=== PATIENT | female | born 1970 | race Caucasian/White ===

== ENCOUNTER 2017-03-08 23:48 | Inpatient (IN) | payer BC ==
--- NOTE | ~2017-03-08 | EKG ---
PATIENT: LAZ SPICER UNIT #: [id number] Ventricular Rate: 99 BPM Atrial Rate: 99 BPM P-R Interval: 126 ms QRS Duration: 84 ms Q-T Interval: 372 ms QTC Calculation(Bezet): 477 ms P Baldwin: 44 degrees Calculated R Baldwin: 89 degrees Calculated T Baldwin: 18 degrees Diagnosis Line: Normal sinus rhythm Diagnosis Line: Nonspecific ST abnormality Diagnosis Line: Abnormal ECG Diagnosis Line: When compared with ECG of 09-MAR-2017 01:17, Diagnosis Line: (unconfirmed) Diagnosis Line: No significant change was found Diagnosis Line: Confirmed by SCOUT COLINDRES MD ([id number]) on 03/10/2017 Diagnosis Line: 4:33:33 PM INTERPRETING MD: BERNADINE HOPE
--- NOTE | ~2017-03-08 | HP ---
Unit #: [id number] #: [id number] Patient: LAZ SPICER [id number] [address] [place], [place] [address] [id number] I MR#: [id number] NAME: LAZ SPICER ROOM: 67434 Age: 47 Sex: F Admission Date: 03/09/2017 : 1970 Attending Physician: Pedro Perkins M.D. Primary Care Physician: Loerna Reed M.D. HISTORY AND PHYSICAL HISTORY OF PRESENT ILLNESS This is a 47-year-old white female previously known to Dr. Perkins with a past medical history of coronary artery disease with an inferior/posterior ST elevation myocardial infarction, status post cardiac catheterization on May 23, 2016 which revealed an ejection fraction of 50%. The patient had a 99% stenosis in the mid right coronary artery with thrombus. There was also a small thrombus in the PDA. She underwent PCI and stent in the mid right coronary artery. Additional past medical history includes hypertension, hyperlipidemia, insulin resistance, obesity and reformed tobacco abuse. The patient presented to the hospital with complaints of fatigue for the last several days. She has also had episodes of body aches and severe chills. She states that she has had intermittent fever ranging from 101.3 to 102.6. She called a tele-doctor due to these complaints and was given Tamiflu recently. She denies any cough. She has had a runny nose for the last two days. Last night she had an episode of chills and body aches and she became very short of breath. She could not take a breath in. There was no pain in the chest. She denies dizziness, palpitations or syncope. The patient went to cardiac rehab after her myocardial infarction and states that she continues to exercise. She did walk for about an hour a couple of days ago. 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 She did quit smoking cigarettes. She states that she has been compliant with all of her medications. She did have a recent oral abscess and had a tooth pulled. She was given some oxacillin but the prescription has been completed. She is scheduled to undergo full dental extraction in the near future. In the emergency department her temperature was 98.3, pulse 80, respirations 16, blood pressure 118/68 and O2 saturation 100% on room air. Initial labs revealed a troponin of 2.4 followed by 6.58. EKG revealed sinus rhythm with nonspecific ST and T-wave changes in the inferior leads. Labs reveal a normal creatinine of 1.2 with a BUN of 13. Potassium was low at 3.2. CK total was elevated at 404. MB and MB% were normal. D-dimer was elevated at 2657. She was given normal saline, tessalon perles, Benadryl and a full aspirin. She was admitted for a non-ST elevation myocardial infarction though there have been no complaints of chest pain. Subsequently in the middle of the night her blood pressure dropped and she was started on a dopamine drip. Her blood pressure is currently stable on dopamine at 5 mcg/kg per minute. She is resting comfortably at this time and only complains of a runny nose. PAST MEDICAL HISTORY Unit #: [id number] #: [id number] Patient: LAZ SPICER 1. Coronary artery disease, ST elevation myocardial infarction in the inferior/posterior wall, status post cardiac catheterization on 05/23/2016 at [facility] which revealed a left ventricular ejection fraction of 50%. Mid right coronary artery 99% with thrombus. Small thrombus in the PDA. LAD with bridging but no significant stenosis. First diagonal 50%. Left circumflex small at 40%. Status post PCI drug-eluting stent to the mid right coronary artery. 2. Hypertension. 3. Hyperlipidemia. 4. Insulin resistance. 5. Obesity. 6. Reformed tobacco abuse. PAST SURGICAL HISTORY 1. Cardiac catheterization with PCI and stent in the mid right coronary artery 05/23/2016. 2. . HOME MEDICATIONS 1. Aspirin 81 mg p.o. daily. 2. Lisinopril 40 mg p.o. daily. 3. Coreg 6.25 mg p.o. b.i.d. 4. Lipitor 80 mg p.o. daily. 5. Plavix 75 mg p.o. daily. ALLERGIES No known drug allergies. SOCIAL HISTORY The patient lives in a private residence. She is a reformed smoker. She previously smoked one pack of cigarettes per day for 25 years. There are no reports of alcohol or illicit drug use. FAMILY HISTORY Significant for heart disease. Her father underwent coronary angioplasty with stent insertion approximately at the age of 60. Her grandfather underwent coronary artery bypass grafting. REVIEW OF SYSTEMS A 10-point review of systems is negative except for details noted above in HPI. PHYSICAL EXAMINATION VITAL SIGNS: Temperature 97.9. Pulse 73. Blood pressure 125/66. CONSTITUTIONAL: This is a 47-year-old white female in no acute distress. SKIN: Skin is warm and dry. NECK: Neck is supple. No jugular vein distention. No hepatojugular reflux. Normal carotid upstrokes. No carotid bruits auscultated. HEART: S1, S2. Regular rate and rhythm. No murmurs, rubs or gallops. LUNGS: Bilateral breath sounds have good air entry throughout all lung mora. Respirations even and unlabored. No rales, rhonchi or wheezes. ABDOMEN: Abdomen is soft, nontender and nondistended. Positive bowel sounds auscultated x4 quadrants. No ascites noted. EXTREMITIES: Bilateral lower extremities have no pretibial or pitting edema. DP and PT pulses 2+. Capillary refill less than two seconds. DIAGNOSTIC STUDIES Unit #: [id number] #: [id number] Patient: LAZ SPICER LABORATORY: White blood cell count 8.4, hemoglobin 11.5, hematocrit 36.3, platelets 187, sodium 133, potassium 3.2, chloride 102, CO2 18, BUN 13, creatinine 1.2, glucose 203, CK total 404, troponin 2.4, 6.58 and 5.60, INR 1.0, D-dimer 2657. CARDIOVASCULAR: EKG reveals sinus rhythm with a nonspecific ST and T-wave changes. QTc 452 msec. IMAGING: Chest x-ray reveals no acute findings. Cardiomegaly noted. Mild infiltrate or atelectasis in both lung bases. IMPRESSION 1. Elevated troponin with questionable etiology. 2. Urinary tract infection. 3. Rule out maxillary sinus infection post dental extraction. 4. Rule out sepsis. 5. Coronary artery disease with history of ST elevation myocardial infarction of the inferior wall status post percutaneous coronary intervention and stent in the mid right coronary artery May 2016. 6. Borderline hypotension. 7. History of hypertension. 8. Hyperlipidemia. 9. Hypokalemia. 10. Elevated D-dimer. 11. Reformed tobacco abuse. PLAN 1. The patient presented to the hospital with complaints of fever, chills and body aches. Her initial troponin was elevated at 2.4 and she ruled in for a myocardial infarction. 2. Her elevated troponin levels are likely not related to ischemic disease. MB% is normal and she denies chest pain. 3. Will trend cardiac enzymes, repeat EKG and check a TSH and fasting lipid profile. 4. The patient will be pancultured due to recent fever. 5. She will be started on IV Rocephin and an composition weatherboard installer will be consulted. 6. Due to recent dental extraction and oral abscess the patient will be scheduled for a CT of her sinuses. 7. A CT angiogram of the chest will be ordered to rule out PE due to elevated D-dimer. 8. The patient is on dual antiplatelet therapy with aspirin and Plavix. Her carvedilol and lisinopril have been discontinued due to borderline low blood pressure. She is currently on a dopamine drip which will be stopped. 9. Two-D echocardiogram has been ordered to assess LV function and valves. 10. Further recommendations are pending per hospital course. Dictated by Stacy Bethea APRN for Pedro Perkins M.D. TR/toney Unit #: [id number] #: [id number] Patient: LAZ SPICER TD: 03/09/2017 15:57 JOB #: [id number] HISTORY AND PHYSICAL Page 1 of 1 X X HISTORY AND PHYSICAL
--- NOTE | ~2017-03-08 | EKG ---
PATIENT: LAZ SPICER UNIT #: [id number] Ventricular Rate: 78 BPM Atrial Rate: 78 BPM P-R Interval: 138 ms QRS Duration: 82 ms Q-T Interval: 460 ms QTC Calculation(Bezet): 524 ms P Cora: 52 degrees Calculated R Cora: 94 degrees Calculated T Cora: 26 degrees Diagnosis Line: Sinus rhythm with Premature atrial complexes Diagnosis Line: Rightward axis Diagnosis Line: Low voltage QRS Diagnosis Line: Prolonged QT Diagnosis Line: Abnormal ECG Diagnosis Line: When compared with ECG of 09-MAR-2017 17:47, Diagnosis Line: (unconfirmed) Diagnosis Line: Premature atrial complexes are now Present Diagnosis Line: Confirmed by SCOUT COLINDRES MD ([id number]) on 03/10/2017 Diagnosis Line: 4:44:26 PM INTERPRETING MD: BERNADINE HOPE
--- NOTE | ~2017-03-08 | CO ---
Unit #: [id number] #: [id number] Patient: LAZ SPICER [id number] [address] [place], [place] [address] [id number] I MR#: [id number] NAME: LAZ SPICER. ROOM: 86424 Age: 47 Sex: F Admission Date: 03/09/2017 : 1970 Attending Physician: Pedro Perkins M.D. Primary Care Physician: Lorena Reed M.D. Consultation Date: 03/09/2017 CONSULTATION REPORT REASON FOR CONSULT ICU management. REASON FOR ADMISSION Shivering and fever. HISTORY OF PRESENT ILLNESS This is a very pleasant, 47-year-old female with past medical history significant for coronary artery disease, possible obstructive sleep apnea, morbid obesity, who presented to the emergency room yesterday night with fear of after she was shivering so hard. Patient stated that three days ago she started having some severe shivering that ended up with high fever and some relief of her symptoms. She denied at that time any cough, chest pain, nausea, vomiting, diarrhea, sore throat or runny nose. The next day she had another pattern that was very similar to the day before but then again it broke as soon as she had a fever. On the third day her symptoms were severe enough to make her feel that she was going to and she wanted to come to the emergency room to be checked. She denied any similar episode in the past. Patient stated that she had her teeth pulled a month ago and then she had an abscess that she was treated with antibiotic for. In the emergency room her troponin was found to be elevated up to six and she was temporarily hypotensive and needed dopamine drip for a short period of time. Currently the patient is severely tachypneic with respiratory rate up to 35 and 40s. She denied any chest pain, shortness of breath or congestion. Her symptoms seem to be improving with breathing treatment. PAST MEDICAL HISTORY 1. Coronary artery disease. 2. Hypertension. 3. Borderline diabetes. 4. Hyperlipidemia. 5. Obesity. PAST SURGICAL HISTORY Unit #: [id number] #: [id number] Patient: LAZ SPICER 1. in September 1992. 2. Right thumb surgery in 1997. SOCIAL HISTORY Patient used to be a heavy smoker with at least one pack per day for the last 30 years but she quit in May 2016. She does not drink or use street drugs. She works in a doctor's office. ALLERGIES No known drug allergies. REVIEW OF SYSTEMS A 12-point review of systems was obtained and was negative except for what was mentioned in the HPI. PHYSICAL EXAMINATION GENERAL: The patient is ill appearing currently but she is going into cycles. VITAL SIGNS: Blood pressure 112/52. Respiratory rate 38. O2 saturation 100%. HEENT: Normocephalic and atraumatic. PERRLA. EOMI. NECK: Supple. No JVD. No lymphadenopathy. CHEST: Clear to auscultation bilaterally. HEART: S1, S2. No murmur, gallops or rubs. ABDOMEN: Soft, nontender. Bowel sound is positive. No hepatosplenomegaly. EXTREMITIES: No edema or cyanosis. SKIN: No rashes. MOISTURE MACHINE TENDER: Awake, alert, oriented x3. No focal motor/sensory deficits. DIAGNOSTIC STUDIES LABORATORY: Creatinine 1.2, sodium 133, (1) white blood count 7.7. ASSESSMENT 1. Acute hypoxic respiratory failure. 2. Non-ST elevation myocardial infarction. 3. Rule out severe sepsis. 4. Hyponatremia. 5. Acute kidney injury. 6. Morbid obesity. 7. Diabetes. 8. Presumed obstructive sleep apnea. PLAN 1. Patient is ill appearing at this point. Will proceed with BiPAP if needed. 2. IV hydration per sepsis guidelines but first lactic acid was normal. We are repeating another one right now. 3. IV antibiotics to cover UTI and possible endocarditis given her recent tooth abscess. 4. CTA of her chest did not show any pulmonary embolus or pneumonia. 5. Pulmonary toilet. 6. Bronchodilator and mucolytics. 7. Blood pressure and blood sugar control. 8. DVT prophylaxis. I would like to thank Dr. Perkins for allowing me to be part of this Unit #: [id number] #: [id number] Patient: LAZ SPICER patient's care. Time spent on this consult was 33 minutes. Dictated by... Kelli Vasquez TD: 03/09/2017 18:30 JOB #: [id number] CONSULTATION REPORT Page 1 of 1 X MEAGHAN SCOTT MD CONSULTATION REPORT
--- NOTE | ~2017-03-08 | CT16 ---
[facility] A Service of [facility] & [facility] RADIOLOGY TEXT RESULTS PATIENT: LAZ SPICER LOCATION: [place] [address] : [birth year] UNIT #: [id number] AGE: [address]: Pedro Perkins MD SEX: F ORDER DR: [id number] [facility] [address] [place], [place] [address] [id number] I MR#: [id number] #: [id number] NAME: LAZ SPICER : 1970 SEX: F STUDY DATE/TIME: 03/09/2017 10:27 [facility] STUDY DESCRIPTION: CT Angio Chest for PE Attending Physician: Pedro Perkins M.D. Ordering Physician: Pedro Perkins M.D. Primary Care Physician: Lorena Reed M.D. MEDICAL IMAGING REPORT This report is preliminary unless electronic signature is present EXAM CT angiogram chest PE protocol dated 03/09/2017. COMPARISON Single view chest dated 03/09/2017. HISTORY Flu-like symptoms for 4 days. History of headache, fever over dental extraction. Increased D-dimer, shortness of air. TECHNIQUE CT angiogram of the chest was obtained with IV contrast in the axial plane followed by sagittal and coronal reformats. This CT exam was performed with one or more of the following radiation dose reduction techniques: automatic exposure control, adjustment of mA and/or kV according to patient size, and iterative reconstruction. FINDINGS Main, right, left pulmonary arteries and their segmental branches demonstrate normal expected flow. No filling defects are noted to suggest pulmonary embolism. There are nonenlarged scattered lymph nodes in the mediastinum. The right hilar lymph node is slightly more enlarged and it measures 1.5 x 1.1 cm. Heart is of normal size. Lungs demonstrate a 6 mm noncalcified right middle lobe lung nodule. Left lung is relatively well aerated. Minimal scattered atelectatic changes are noted in the right upper lobe. No pleural effusion or pneumothorax. Imaged upper abdomen does not demonstrate obvious acute abnormality. Degenerative changes are noted in the thoracic spine. It is relatively worse at T10-11 where there is a calcified left to right central lesion which extends to the right subarticular region. It could represent a calcified disc or ossification of the posterior longitudinal ligament. It causes at least moderate canal stenosis with cord compression. Calcifications are noted in a similar STS. [facility] A Service of [facility] & [facility] RADIOLOGY TEXT RESULTS PATIENT: LAZ SPICER LOCATION: [place] [address] : [birth year] UNIT #: [id number] AGE: [address]: Pedro Perkins MD SEX: F ORDER DR: region at T11-12 but it is smaller. IMPRESSION 1. No evidence of pulmonary embolism, aortic aneurysm, or dissection. 2. There are mediastinal and right hilar lymph nodes noted with the relatively larger 1 in the right hilum measuring 1.5 x 1.0 cm and is enlarged. These multiple lymph nodes noted are probably reactive. 3. 6 mm noncalcified right upper lobe lung nodule is seen close to the right horizontal fissure. Followup CT is suggested in 1 year. 4. Small hiatal hernia. 5. Degenerative changes are noted in the thoracic spine, worse at T10-11 where there is a calcified disc or ossification of the posterior longitudinal ligament, contributing to moderate canal stenosis and probably some impingement on the thoracic cord displacement. Dictated by... Estela Moralez M.D. THIS IS AN ELECTRONICALLY VERIFIED REPORT Estela Moralez M.D. at 03/11/2017 1:48 PM CPR/tmw TD: 03/09/2017 14:17 JOB #: [id number] MEDICAL IMAGING REPORT Page 1 of 1 COPY
--- NOTE | ~2017-03-08 | CR72 ---
[facility] A Service of [facility] & [facility] RADIOLOGY TEXT RESULTS PATIENT: LAZ SPICER LOCATION: [place] [address] : [birth year] UNIT #: [id number] AGE: [address]: Pedro Perkins MD SEX: F ORDER DR: [id number] [facility] [address] [place], [place] [address] [id number] I MR#: [id number] Acc #: [id number] NAME: LAZ SPICER. : 1970 SEX: F STUDY DATE/TIME: 03/09/2017 0031 UNIT: [facility] ROOM: 27411 STUDY DESCRIPTION: CR Chest Single View Portable Attending Physician: Pedro Perkins M.D. Ordering Physician: Poonam French A.P.R.N. Primary Care Physician: Lorena Reed M.D. MEDICAL IMAGING REPORT This report is preliminary unless electronic signature is present EXAM Portable chest, 03/09 at 0031 INDICATION Cough, shortness of air, and congestion for 4 days. FINDINGS AP portable chest is compared with 05/23/2016. The heart is enlarged. There is some mild infiltrate or atelectasis in both lung bases. Lungs otherwise are clear and there is no pneumothorax. IMPRESSION Cardiomegaly with mild infiltrate or atelectasis in both lung bases. Dictated by... Charan Tafoya Jr., M.D. THIS IS AN ELECTRONICALLY VERIFIED REPORT Charan Tafoya Jr., M.D. at 03/09/2017 12:36 PM ANDREIA/hannah TD: 03/09/2017 09:20 JOB #: [id number] MEDICAL IMAGING REPORT Page 1 of 1 COPY
--- NOTE | ~2017-03-08 | EKG ---
PATIENT: LAZ SPICER UNIT #: [id number] Ventricular Rate: 77 BPM Atrial Rate: 77 BPM P-R Interval: 130 ms QRS Duration: 82 ms Q-T Interval: 468 ms QTC Calculation(Bezet): 529 ms P [place]: 26 degrees Calculated R [place]: 40 degrees Calculated T [place]: 15 degrees Diagnosis Line: Normal sinus rhythm Diagnosis Line: Prolonged QT Diagnosis Line: Abnormal ECG Diagnosis Line: When compared with ECG of 09-MAR-2017 11:48, Diagnosis Line: (unconfirmed) Diagnosis Line: QT has lengthened Diagnosis Line: Confirmed by SCOUT COLINDRES MD ([id number]) on 03/10/2017 Diagnosis Line: 4:38:54 PM INTERPRETING MD: BERNADINE HOPE
--- NOTE | ~2017-03-08 | CT113 ---
[facility] A Service of [facility] & [facility] RADIOLOGY TEXT RESULTS PATIENT: LAZ SPICER LOCATION: [place] [address] : [birth year] UNIT #: [id number] AGE: [address]: Pedro Perkins MD SEX: F ORDER DR: [id number] [facility] [address] [place], [place] [address] [id number] I MR#: [id number] Acc #: [id number] NAME: LAZ SPICER : 1970 SEX: F STUDY DATE/TIME: 03/09/2017 10:24 [facility] [address] STUDY DESCRIPTION: CT Sinuses Wo Contrast Attending Physician: Pedro Perkins M.D. Ordering Physician: Pedro Perkins M.D. Primary Care Physician: Lorena Reed M.D. MEDICAL IMAGING REPORT This report is preliminary unless electronic signature is present EXAM CT sinus without contrast dated 03/09/2017. COMPARISON None HISTORY Flu-like symptoms for 4 days. History of headache, fever after dental extractions. Increased D-dimer and shortness of air. TECHNIQUE CT of the sinuses was obtained in the axial plane followed by sagittal and coronal reformats. This CT exam was performed with one or more of the following radiation dose reduction techniques: automatic exposure control, adjustment of mA and/or kV according to patient size, and iterative reconstruction. FINDINGS A small nodular mucosal thickening is noted in bilateral maxillary antra with minimal peripheral mucosal thickening. They are draining and infundibulum is patent. Bifrontal, bilateral ethmoid, bilateral sphenoid sinuses demonstrate well aeration except for a non-pneumatized left frontal sinus. Mastoid air cells demonstrate minimal mucosal thickening in the right mastoids. Imaged orbits with the ocular structures are unremarkable. There are multiple missing teeth in the left side of the maxilla from the left central incisor up to the left first premolar tooth. No adjacent acute inflammatory changes are seen. Planum sphenoidale, aby kayleigh, fovea ethmoidalis, and the anterior clinoid processes are unremarkable. IMPRESSION 1. Small nodular mucosal thickening are noted in bilateral maxillary STS. [facility] A Service of [facility] & [facility] RADIOLOGY TEXT RESULTS PATIENT: LAZ SPICER LOCATION: [place] [address] : [birth year] UNIT #: [id number] AGE: [address]: Pedro Perkins MD SEX: F ORDER DR: celina. 2. 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 3. Ostiomeatal complex including the sphenoethmoid and the frontoethmoid recesses and infundibulum draining the maxillary antra are widely patent. 4. There are 4 missing teeth from the left central incisor to the left first premolar teeth. Dictated by... Estela Moralez M.D. THIS IS AN ELECTRONICALLY VERIFIED REPORT Estela Moralez M.D. at 03/11/2017 1:48 PM CPR/tmw TD: 03/09/2017 14:23 JOB #: [id number] MEDICAL IMAGING REPORT Page 1 of 1 COPY
--- NOTE | ~2017-03-08 | DS ---
Unit #: [id number] #: [id number] Patient: LAZ SPICER [id number] [address] [place], [place] [address] [id number] MR#: [id number] NAME: LAZ SPICER. ROOM: 549 Age: 47 Sex: F Admission Date: 03/09/2017 : 1970 Discharge Date: 03/11/2017 Attending Physician: Pedro Perkins M.D. Primary Care Physician: Lorena Reed M.D. DISCHARGE SUMMARY DISCHARGE DIAGNOSES 1. Escherichia coli urosepsis. 2. Elevated troponin, probable myopericarditis, peak troponin 6.58. 3. History of coronary artery disease. May 2016, had ST elevated myocardial infarction status post percutaneous coronary intervention and stent to the mid right coronary artery, continues to be on Plavix and aspirin. 4. Hypotension but is improved. 5. Diabetes mellitus type 2. 6. Hypertension. 7. Hyperlipidemia. 8. Recent oral abscess with tooth extraction three weeks ago. 9. Left ventricular ejection fraction 50% on last cath in May 2016. 10. Probable obstructive sleep apnea. 11. Nicotine abuse. 12. March 09, 2017, a 2D echocardiogram: Left ventricular ejection fraction of 50%. The spectral Doppler flow pattern suggestive of impaired left ventricular relaxation. No significant valvular abnormalities. DISCHARGE MEDICATIONS 1. Ciprofloxacin 400 mg one tablet p.o. twice daily x4 days. 2. Decrease lisinopril to 10 mg one tablet p.o. daily at bedtime from 40 mg daily. 3. Decrease carvedilol 3.125 mg one tablet p.o. twice daily. 4. Rqkw-zqs-latupch Tylenol 650 mg every six hours p.r.n. for pain or fever. 5. Lipitor 80 mg p.o. daily at bedtime. 6. Aspirin 81 mg p.o. daily. 7. Plavix 75 mg p.o. daily. HOSPITAL COURSE This is a 47-year-old white female well known to Dr. Perkins, had a history of STEMI and PCI and stent to the RCA last May, who three weeks ago had an oral abscess with tooth extraction and about week ago started developing body aches and severe chills and a fever. She said her fever ranged anywhere from 101.3 to 102.6. She talked to the doctor over the phone and was given Tamiflu. She said she felt like she had head and chest congestion. She felt like she had increased shortness of breath, especially with exertion. She denied any chest pain, pain in her neck, bilateral jaws, shoulders, arms, or elbow. She denied any dizziness, presyncope, or syncope. No palpitations. She recent quit smoking cigarettes. She has been compliant with all of her medicines. In the emergency room, her blood pressure was down to 118/68. O2 saturation was Unit #: [id number] #: [id number] Patient: LAZ SPICER 100% on room air, heart rate 80. Her initial labs revealed a troponin of 2.4 followed by a peak troponin of 6.58. Her EKG revealed sinus rhythm with nonspecific ST-T wave abnormalities in inferior leads. Her CK total was elevated at 404 but MB and percentage of MB were normal. D-dimer was elevated at 2657. The patient was started on normal saline and given Tessalon Perles, Benadryl, aspirin. Her blood pressure did continue to drop and she ended up having to be put on dopamine for about 24 hours. Her blood cultures remained negative. She did have an urinalysis which did indicate urinary tract infection. Her urine culture was positive for E. coli. She was on IV Rocephin and IV vancomycin. She will be discharged home on p.o. ciprofloxacin. The past 24-36 hours, she has been afebrile. She said she feels her overall symptoms have improved. Her troponin continues to trend down. This morning, it is 0.4. Dr. Perkins after her history and having the recent dental extraction and her UTI, he feels like the elevated troponin is likely from myopericarditis. The patient had a 2D echo on this admission that showed the LV EF of 60%. No significant valvular abnormalities. Dr. Perkins's recommendations: Since the patient has no signs or symptoms of unstable angina or acute congestive heart failure, continue antibiotics. Since blood cultures are negative, she can have a Cardiolite stress test for further evaluation. That will be scheduled next week after she has finished her round of antibiotics. On day of discharge, the patient is in stable condition. No complaints of chest pain, palpitations, shortness of breath, dizziness. She has been afebrile. Her carvedilol and lisinopril was held during this admission. That will be restarted at lower doses to avoid any hypotension. The patient's blood pressure is stable. PHYSICAL EXAMINATION On time of discharge: VITAL SIGNS: Blood pressure 146/60, heart rate 70, respirations 18, temperature 97.9, and O2 saturations 100% on room air. HEART: S1, S2. Regular rate and rhythm. LUNGS: Slightly diminished, otherwise clear. ABDOMEN: Soft, nontender. EXTREMITIES: Pedal pulses are palpable. No pedal edema. DIAGNOSTIC STUDIES LABORATORY: Latest laboratory diagnostic data: Glucose is 116, BUN 13, creatinine 0.8, eGFR is 89.1, sodium 136, potassium 3.6, chloride 106, CO2 of 20, calcium 8. Magnesium 1.9. Troponin has trended down from 6.58, 5.6, 2.53, 2.18, 0.7, and 0.4. Fasting lipid profile: Cholesterol of 109, triglycerides 441, LDL 37, HDL 5. TSH is 3.40. WBC 9.5, hemoglobin is down to 9.7, hematocrit 30.8, platelets 148,000. Urine culture did result E. coli. Blood cultures are negative, preliminary report x2 sets. IMAGING: CT of the chest done on admission showed no evidence of pulmonary embolism, aortic aneurysm, or dissection. There are multiple lymph nodes, probable reactive, and a 6 mm noncalcified right upper lobe lung nodule. Followup in one year with a CT. CARDIOVASCULAR: Telemetry shows normal sinus rhythm. PLAN/INSTRUCTIONS 1. The patient will be instructed to follow up with Dr. Floyd in two weeks. She has been instructed on her oral antibiotics, ciprofloxacin 400 mg p.o. twice daily x4 days. The patient has been Unit #: [id number] #: [id number] Patient: LAZ SPICER instructed if she has a recurrent fever, chills, or any signs or symptoms of infection to return back to the emergency room. 2. The patient will be instructed to follow up with Dr. Perkins on Saturday, April 15 at 2:15 p.m. Patient will be scheduled for an outpatient stress test end of next week after she has finished her antibiotics and has cooperated from her illness. Patient also will follow up with Dr. Perkins as an outpatient. The patient will continue on her dual-antiplatelet therapy. In addition, will decrease down the dose of carvedilol to 3.125 mg p.o. twice daily and lisinopril 10 mg p.o. daily at bedtime. 3. Continue patient on her statin at 80 mg p.o. daily. 4. Instruct the patient to follow up with her PCP and her oral surgeon. She has plans to get the rest of her teeth extracted as an outpatient. Dictated by... Yanna Busch A.P.R.N. for Pedro Perkins M.D. ANGEL/hermes TD: 03/11/2017 14:45 JOB #: [id number] DISCHARGE SUMMARY Page 1 of 1 X Yanna Busch APRN X DISCHARGE SUMMARY
--- NOTE | ~2017-03-08 | EKG ---
PATIENT: LAZ SPICER UNIT #: [id number] Ventricular Rate: 93 BPM Atrial Rate: 93 BPM P-R Interval: 134 ms QRS Duration: 88 ms Q-T Interval: 364 ms QTC Calculation(Bezet): 452 ms P Topmost: 57 degrees Calculated R Topmost: 67 degrees Calculated T Topmost: 23 degrees Diagnosis Line: Normal sinus rhythm Diagnosis Line: Low voltage QRS Diagnosis Line: Borderline ECG Diagnosis Line: No previous ECGs available Diagnosis Line: Confirmed by SCOUT COLINDRES MD ([id number]) on 03/10/2017 Diagnosis Line: 4:30:25 PM INTERPRETING MD: BERNADINE HOPE
--- NOTE | ~2017-03-08 | BMI ---
[facility] Nutrition Therapy DATE: 03/11/17 Patient: LAZ SPICER Physician: MAC Address: [address] [place] [address] Room/Bed: [address] [place] [address], Zip: [place] [address] Admit Date: 03/09/17 Date of : [birth year] Height: Weight: 231 104.8 HIGH BMI NOTE: DX: 47 yo female admitted for NSTEMI ANTHROPOMETRICS: Ht: 5'2" Wt: 105 kg (231#) BMI: 42.3 DIET: Healthy heart INTERVENTION: 1. Healthy heart RECOMMENDATIONS: 1. Continue healthy heart diet to promote gradual weight loss towards healthy BMI. RD will f/u per protocol. Respectfully, Ghazala Marks, Filler Machine Operator Braulio Wong MS, RD, LD Food and Nutritional Services [facility] cc: client file
[~2017-03-08 23:48] MED LIST: ASPIRIN81 MG PO; BRILINTA90 MG PO; COREG6.25 MG PO; HYDROCHLOROTHIA25 MG PO; LIPITOR80 MG PO; MAGNESIUM400 MG PO; NITROGLYCERIN; ZESTRIL40 MG PO
[2017-03-09 00:47] LABS: INFLUENZA A NEG (NEG); INFLUENZA B NEG (NEG)
[2017-03-09 00:53] LABS: URINE SOURCE CLEAN CATCH
[2017-03-09 00:56] LABS: BASOPHIL% 0.2 % (0-2.5); EOSINOPHIL% 0.1 % (0.0-7.0); HEMATOCRIT 36.3 % (35.0-45.0); HEMOGLOBIN 11.5 gm/dL (12.0-16.0); LYMPHOCYTE# 0.3 X10e3 (1.0-3.5); LYMPHOCYTE% 3.7 % (17.0-45.0); MEAN CELL VOLUME 72.4 FL (83-96); MEAN CORPUSCULAR HGB CONC 31.7 g/dL (30-36); MEAN PLATELET VOLUME 10.1 FL (6.5-11.5); MONOCYTE# 0.4 X10e3 (0-1.0); MONOCYTE% 5.2 % (3.0-12.0); NEUTROPHIL# 7.6 X10e3 (1.5-7.1); NEUTROPHIL% 90.8 % (40-75); PLATELET COUNT 187 X10e3 (140-420); RED BLOOD COUNT 5.01 X10e (3.90-5.30); RED CELL DISTRIBUTION WIDTH 18.7 % (11.0-15.5); WHITE BLOOD COUNT 8.4 X10e3 (4.0-10.5)
[2017-03-09 00:59] LABS: URINE APPEARANCE CLOUDY; URINE BILIRUBIN NEG (NEG); URINE BLOOD 1+ (NEG); URINE COLOR YELLOW; URINE GLUCOSE NEG (NEG); URINE KETONE NEG (NEG); URINE LEUKOCYTE ESTERASE 2+ (NEG); URINE NITRATE POS (NEG); URINE PH 5.5 (5-8); URINE PROTEIN 2+ (NEG)
[2017-03-09 01:00] LABS: DIFF IND NO
[2017-03-09 01:02] LABS: CULTURE INDICATED? YES; URINE BACTERIA AUWI 4+ (NEGATIVE); URINE SQUAMOUS EPITHELIAL CELL FEW /[HPF]; UWBCS1 AUWI 50-100 (0-5)
[2017-03-09 01:08] LABS: POC - CKMB 8.1 ng/mL (0.0-7.9); POC - TROPONIN 2.73 ng/mL (<=0.05)
[2017-03-09 01:18] LABS: BUN/CREATININE RATIO 10.83; CALCIUM SERUM 8.5 mg/dL (8.4-10.2); CREATININE SERUM 1.2 mg/dL (0.6-1.4); GLOM FILT RATE Estimated 54.5 mL/min (>60); POTASSIUM 3.2 mmol/L (3.5-5.1)
[2017-03-09 01:24] LABS: PARTIAL THROMBOPLASTIN TIME 30.3 SECONDS (23.5-31.3); PROTHROMBIN TIME (PATIENT) 10.7 SECONDS (9.6-11.5)
[2017-03-09 01:43] LABS: POC - CKMB 6.7 ng/mL (0.0-7.9); POC - TROPONIN 2.4 ng/mL (<=0.05)
[2017-03-09 05:01] LABS: %MB 2.9 % (0.0-4.0); MB 11.7 ng/ml
[2017-03-09] MEDS ORDERED: ZESTRIL40 MG PO (05:02)
[2017-03-09] MEDS ORDERED: ASPIRIN81 MG PO (05:02)
[2017-03-09] MEDS ORDERED: LIPITOR80 MG PO (05:03)
[2017-03-09] MEDS ORDERED: COREG6.25 MG PO (05:03)
[2017-03-09] MEDS ORDERED: CLOPIDOGREL75 MG PO (05:03)
[2017-03-09 06:42] LABS: PARTIAL THROMBOPLASTIN TIME 25.5 SECONDS (23.5-31.3); PROTHROMBIN TIME (PATIENT) 10.9 SECONDS (9.6-11.5)
[2017-03-09 12:10] LABS: CHOLESTEROL 94 mg/dL (0-200); HDL CHOLESTEROL 12 mg/dL (35-95); LDL CHOLESTEROL 37 mg/dL (-130); LDL/HDL RATIO 3 RATIO (0-4); TRIGLYCERIDES 223 mg/dL (10-160)
[2017-03-09 12:19] LABS: %MB 2.1 % (0.0-4.0); MB 10.5 ng/ml
[2017-03-09 13:27] LABS: BASOPHIL% 0.1 % (0-2.5); DIFF IND NO; HEMATOCRIT 37.9 % (35.0-45.0); HEMOGLOBIN 12.1 gm/dL (12.0-16.0); LYMPHOCYTE# 0.4 X10e3 (1.0-3.5); LYMPHOCYTE% 4.7 % (17.0-45.0); MEAN CELL VOLUME 72.4 FL (83-96); MEAN CORPUSCULAR HEMOGLOBIN 23.1 PG (28-34); MEAN CORPUSCULAR HGB CONC 31.9 g/dL (30-36); MEAN PLATELET VOLUME 10.5 FL (6.5-11.5); MONOCYTE# 0.2 X10e3 (0-1.0); MONOCYTE% 2.8 % (3.0-12.0); NEUTROPHIL# 7.1 X10e3 (1.5-7.1); NEUTROPHIL% 92.4 % (40-75); PLATELET COUNT 170 X10e3 (140-420); RED BLOOD COUNT 5.24 X10e (3.90-5.30); WHITE BLOOD COUNT 7.7 X10e3 (4.0-10.5)
[2017-03-09 18:10] LABS: %MB 1.3 % (0.0-4.0); MB 5.7 ng/ml
[2017-03-10 07:19] LABS: HEMATOCRIT 30.8 % (35.0-45.0); MEAN CELL VOLUME 72.3 FL (83-96); MEAN CORPUSCULAR HEMOGLOBIN 22.9 PG (28-34); MEAN CORPUSCULAR HGB CONC 31.6 g/dL (30-36); MEAN PLATELET VOLUME 10.3 FL (6.5-11.5); RED BLOOD COUNT 4.26 X10e (3.90-5.30); RED CELL DISTRIBUTION WIDTH 18.5 % (11.0-15.5); WHITE BLOOD COUNT 9.5 X10e3 (4.0-10.5)
[2017-03-10 07:24] LABS: HEMOGLOBIN 9.7 gm/dL (12.0-16.0)
[2017-03-10 08:19] LABS: BLOOD UREA NITROGEN 11 mg/dL (9-23); BUN/CREATININE RATIO 12.22; CALCIUM SERUM 7.7 mg/dL (8.4-10.2); CARBON DIOXIDE 20 mmol/L (22-31); CHLORIDE 106 mmol/L (100-111); CHOLESTEROL 109 mg/dL (0-200); CREATININE SERUM 0.9 mg/dL (0.6-1.4); GLOM FILT RATE Estimated 77.3 mL/min (>60); GLUCOSE FASTING 127 mg/dL (70-110); HDL CHOLESTEROL 5 mg/dL (35-95); POTASSIUM 3.9 mmol/L (3.5-5.1); SODIUM 135 mmol/L (135-145)
[2017-03-10 08:22] LABS: TRIGLYCERIDES 441 mg/dL (10-160)
[2017-03-11 07:12] LABS: BUN/CREATININE RATIO 16.25; CREATININE SERUM 0.8 mg/dL (0.6-1.4); GLOM FILT RATE Estimated 89.1 mL/min (>60); MAGNESIUM 1.9 mg/dL (1.6-3.0); POTASSIUM 3.6 mmol/L (3.5-5.1)
[2017-03-11] MEDS ORDERED: CIPRO PO (13:35)
[2017-03-11] MEDS ORDERED: ACETAMINOPHEN PO (13:35)
== END 2017-03-11 15:01 | disposition home or self-care (01) | DRG 871 ==
LOC: CED 23:48 → CEDOF 03-09 02:45 → C5B 03-09 18:33
PROVIDERS: Emergency Medicine; Internal Medicine; Internal Medicine Cardiovascular Disease; Nurse Practitioner
PROC: B32TYZZ Computerized Tomography (CT Scan) of Left Pulmonary Artery using Other Contrast (ICD-10-PCS; principal; 2017-03-09)
PROC: B32SYZZ Computerized Tomography (CT Scan) of Right Pulmonary Artery using Other Contrast (ICD-10-PCS; 2017-03-09)
PROC: B246ZZZ Ultrasonography of Right and Left Heart (ICD-10-PCS; 2017-03-09)
DX: A41.51 Sepsis due to Escherichia coli [E. coli] (principal); J96.01 Acute respiratory failure with hypoxia; N17.9 Acute kidney failure, unspecified; I31.9 Disease of pericardium, unspecified; I95.9 Hypotension, unspecified; E87.1 Hypo-osmolality and hyponatremia; N39.0 Urinary tract infection, site not specified; E66.01 Morbid (severe) obesity due to excess calories; I25.10 Atherosclerotic heart disease of native coronary artery without angina pectoris; Z95.5 Presence of coronary angioplasty implant and graft; I25.2 Old myocardial infarction; E11.9 Type 2 diabetes mellitus without complications; I10 Essential (primary) hypertension; E78.5 Hyperlipidemia, unspecified; G47.33 Obstructive sleep apnea (adult) (pediatric); Z87.891 Personal history of nicotine dependence; Z79.82 Long term (current) use of aspirin; Z79.02 Long term (current) use of antithrombotics/antiplatelets; E87.6 Hypokalemia; B96.20 Unspecified Escherichia coli [E. coli] as the cause of diseases classified elsewhere; R65.20 Severe sepsis without septic shock
CPT/HCPCS: 70486; 71010; 71275; 80048; 80061; 81003; 82550; 82553; 82947; 83605; 83735; 83880; 84443; 84484; 84703; 85025; 85027; 85379; 85610; 85730; 87040; 87086; 87088; 87186; 87804; 93005; 93306; 94640; 94760; 96361; 96374; 99291; J0696; J1040; J1200; J1265; J1644; J1650; J3370; Q9967

== ENCOUNTER 2017-04-09 16:17 | Emergency (ER) | payer BC ==
--- NOTE | ~2017-04-09 | EKG ---
PATIENT: LAZ SPICER UNIT #: [id number] Ventricular Rate: 68 BPM Atrial Rate: 68 BPM P-R Interval: 132 ms QRS Duration: 88 ms Q-T Interval: 432 ms QTC Calculation(Bezet): 459 ms P Brandon: 31 degrees Calculated R Brandon: 57 degrees Calculated T Brandon: 24 degrees Diagnosis Line: Normal sinus rhythm with sinus arrhythmia Diagnosis Line: Normal ECG Diagnosis Line: When compared with ECG of 10-MAR-2017 05:59, Diagnosis Line: Premature atrial complexes are no longer Present Diagnosis Line: QT has shortened Diagnosis Line: Confirmed by WICHO AMADOR MD ([id number]) on 04/10/2017 Diagnosis Line: 10:05:31 AM INTERPRETING MD: PERRY HOPE
[~2017-04-09 16:17] MED LIST changes: +ACETAMINOPHEN PO; +CIPRO PO; +CLOPIDOGREL75 MG PO
[2017-04-09 16:52] LABS: BASOPHIL# 0.1 X10e3 (0-0.3); BASOPHIL% 0.6 % (0-2.5); EOSINOPHIL# 0.2 X10e3 (0-0.7); EOSINOPHIL% 1.6 % (0.0-7.0); HEMATOCRIT 36.6 % (35.0-45.0); HEMOGLOBIN 11.3 gm/dL (12.0-16.0); LYMPHOCYTE# 3.5 X10e3 (1.0-3.5); LYMPHOCYTE% 31.7 % (17.0-45.0); MEAN CELL VOLUME 72.3 FL (83-96); MEAN CORPUSCULAR HEMOGLOBIN 22.3 PG (28-34); MEAN CORPUSCULAR HGB CONC 30.9 g/dL (30-36); MEAN PLATELET VOLUME 9.5 FL (6.5-11.5); MONOCYTE# 0.8 X10e3 (0-1.0); MONOCYTE% 7.1 % (3.0-12.0); NEUTROPHIL# 6.6 X10e3 (1.5-7.1); PLATELET COUNT 330 X10e3 (140-420); RED BLOOD COUNT 5.06 X10e (3.90-5.30); RED CELL DISTRIBUTION WIDTH 16.8 % (11.0-15.5); WHITE BLOOD COUNT 11.1 X10e3 (4.0-10.5)
[2017-04-09 16:58] LABS: DIFF IND NO
[2017-04-09 17:09] LABS: ALBUMIN SERUM 4.2 g/dL (3.5-5.0); BILIRUBIN, DIRECT 0.1 mg/dL (0.0-0.2); BILIRUBIN,INDIRECT 0.3 mg/dL (0.0-0.9); BILIRUBIN,TOTAL 0.4 mg/dL (0.2-2.0); CALCIUM SERUM 9.6 mg/dL (8.4-10.2); CREATININE SERUM 0.7 mg/dL (0.6-1.4); GLOM FILT RATE Estimated 104.6 mL/min (>60); POTASSIUM 3.7 mmol/L (3.5-5.1); PROTEIN TOTAL SERUM 7.6 g/dL (6.0-8.3)
[2017-04-09 17:47] LABS: URINE SOURCE CLEAN CATCH
[2017-04-09 17:52] LABS: URINE APPEARANCE CLEAR; URINE BILIRUBIN NEG (NEG); URINE BLOOD NEG (NEG); URINE COLOR YELLOW; URINE GLUCOSE NEG (NEG); URINE KETONE NEG (NEG); URINE LEUKOCYTE ESTERASE 1+ (NEG); URINE NITRATE NEG (NEG); URINE PH 5.5 (5-8); URINE PROTEIN NEG (NEG); URINE SPECIFIC GRAVITY 1.011 (1.003-1.035); URINE UROBILINOGEN 0.2 MG/DL (NEG)
[2017-04-09 17:53] LABS: CULTURE INDICATED? YES; URBCS1 AUWI 0-2 /[HPF] (0-2); URINE BACTERIA AUWI NEG (NEGATIVE); URINE SQUAMOUS EPITHELIAL CELL OCC /[HPF]
[2017-04-09 19:13] LABS: POC - CKMB <1.0 ng/mL (0.0-7.9); POC - TROPONIN <0.05 ng/mL (<=0.05)
[2017-04-09 19:43] LABS: POC - CKMB <1.0 ng/mL (0.0-7.9); POC - TROPONIN <0.05 ng/mL (<=0.05)
== END 2017-04-09 20:02 | disposition home or self-care (01) ==
LOC: CED 16:17
PROVIDERS: Emergency Medicine
DX: R42 Dizziness and giddiness (principal); I25.2 Old myocardial infarction; E11.9 Type 2 diabetes mellitus without complications; I10 Essential (primary) hypertension; Z79.899 Other long term (current) drug therapy
CPT/HCPCS: 36415; 80048; 80076; 81003; 82553; 84484; 84703; 85025; 87086; 93005; 99283

== ENCOUNTER → 2017-04-22 | Outpatient (CLI) | payer BC ==
--- NOTE | ~2017-04-22 | ST ---
Unit #: [id number] #: [id number] Patient: LAZ SPICER [id number] [facility] [address] [facility]. [place], [place] [address] [id number] MR#: [id number] NAME: LAZ SPICER. : 1970 SEX: F STUDY DATE/TIME: UNIT: [facility] ROOM: STUDY DESCRIPTION: Stress Test Attending Physician: Pedro Perkins M.D. Referring Physician: Pedro Perkins M.D. Primary Care Physician: Lorena Reed M.D. CARDIOLOGY REPORT EXAM Walking Lexiscan Cardiolite Stress Test DESCRIPTION Baseline EKG - normal sinus rhythm with ventricular rate 65 beats/minute, T wave inversion in inferior leads, slightly prolonged QT. T wave inversion also noted in AVR and V1. Probable Q wave in V1. Lexiscan is a four minute test with Lexiscan being injected within the first minute followed by Cardiolite. EKG during the test continues to show T wave inversion in inferior leads including lead II and AVF and some 0.[address] depression in lead II, also in lateral leads. The patient had no complaints of chest pain, palpitations or dizziness. Had increased shortness of breath and fatigueness which resolved in recovery phase. Maximum heart rate response was 113 beats per minute with a maximum blood pressure response of 170/77 mmHg. Cardiolite was injected after Lexiscan within the first minute of the test. Radionuclide test pending. Please correlate with nuclear images. Dictated by... Wilma DasilvaRFriedaNFrieda for Kelli Gold/teressa TD: 04/22/2017 09:29 JOB #: [id number] Unit #: [id number] #: [id number] Patient: LAZ SPICER CARDIOLOGY REPORT Page 1 of 1 X Yanna Busch APRN CARDIOLOGY REPORT
--- NOTE | ~2017-04-22 | TH ---
Unit #: [id number] #: [id number] Patient: LAZ SPICER [id number] [address] [address] [id number] O MR#: [id number] NAME: LAZ SPICER : 1970 SEX: F STUDY DATE/TIME: 04/22/2017 UNIT: [facility] ROOM: STUDY DESCRIPTION: Walking Lexiscan - Nuclear Attending Physician: Pedro Perkins M.D. Referring Physician: Pedro Perkins M.D. Primary Care Physician: Lorena Reed M.D. CARDIOLOGY REPORT PROCEDURE PERFORMED Walking Lexiscan Cardiolite stress test - Nuclear portion. PROCEDURE Using technetium 99m-labeled Cardiolite, rest and stress SPECT images were obtained. Multiple SPECT images were obtained in various views, including horizontal and vertical long axis and short axis views of the left ventricle. Images were obtained by gated SPECT method. The patient was administered 11.46 mCi of Cardiolite at rest. The patient was administered 31.4 mCi of Cardiolite after Lexiscan infusion was completed. On the stress images, there is normal perfusion noted. The rest images show normal perfusion. Comparing the rest and stress images, there is no stress-induced ischemia noted. The left ventricular ejection fraction is calculated to be 74%. There is no focal wall motion abnormality seen. CONCLUSION 1. No stress-induced ischemia noted. 2. The left ventricular ejection fraction is calculated to be 74%. 3. There is no focal wall motion abnormality seen. 4. Normal Lexiscan Cardiolite stress test. Dictated by... Kelli Gold/max TD: 04/22/2017 15:53 JOB #: [id number] CARDIOLOGY REPORT Page 1 of 1 X Andreina Chance MD <ELECTRONICALLY SIGNED> 06/22/17 1429 CARDIOLOGY REPORT
== END | disposition home or self-care (01) ==
LOC: CNUC 07:01
DX: I25.10 Atherosclerotic heart disease of native coronary artery without angina pectoris (principal)
CPT/HCPCS: 78452; 93017; A9500; J2785